=== PATIENT | female | born 1975 | race Caucasian/White ===

== ENCOUNTER 2018-02-14 22:52 | Emergency (ER) | payer OTHER ==
[~2018-02-14] VITALS: Ht 157.5 cm; Wt 86.2 kg
[2018-02-15] MEDS ORDERED: FORTAMET500 MG (00:36)
[2018-02-15] MEDS ORDERED: LEVSIN/SL0.125 MG SL (05:33)
[2018-02-15] MEDS ORDERED: INTESTINEX680 M1 PO (05:33)
[2018-02-15] MEDS ORDERED: ZOFRAN ODT8 MG PO (05:33)
[2018-02-15] MEDS ORDERED: PEPCID40 MG PO (05:33)
== END 2018-02-15 05:51 | disposition home or self-care (01) ==
LOC: ER 22:52
DX: R10.11 Right upper quadrant pain (principal)